=== PATIENT | male | born 1990 | race African-American/Black ===

== ENCOUNTER 2018-07-25 19:42 | Inpatient (IN) ==
[2018-07-25] MEDS ORDERED: Diphtheria/Tetanus/Pertussis Vaccine Inj 0.5 ML Syringe IM ONE (19:47)
[2018-07-25] MEDS ORDERED: Morphine Inj 4 MG/ML Vial ONE (19:54)
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
[2018-07-25] MEDS ORDERED: Lidocaine 2%/Epinephrine 1:100,000 30 ML MDV INFILTRATN ONE (20:32)
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
[2018-07-25 20:42] LABS: Baso % (Auto) 0.3 % (0.0-2.0); Eos % (Auto) 0.5 % (0.0-4.0); Hematocrit 45.5 % (39.0-51.0); Hemoglobin 15.2 gm/dL (13.0-17.0); Lymph # (Auto) 2.8 th/mm3 (1.0-4.8); Lymph % (Auto) 50.5 % (9.0-44.0); Mean Corpuscular HGB Conc 33.5 % (32.0-36.0); Mean Corpuscular Hemoglobin 28.2 pg (27.0-34.0); Mean Platelet Volume 7.5 fL (7.0-11.0); Mono # (Auto) 0.6 th/mm3 (0.0-0.9); Mono % (Auto) 11.5 % (0.0-8.0); Neut # (Auto) 2.1 th/mm3 (1.8-7.7); Neut % (Auto) 37.2 % (16.0-70.0); Platelet Count 207 th/mm3 (150-450); Red Blood Count 5.41 mil/mm3 (4.50-5.90); White Blood Count 5.6 th/mm3 (4.0-11.0)
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
[2018-07-25] MEDS ORDERED: Sod Chloride 0.9% Inj 1,000 ML IV.SIG ONE (20:45)
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
[2018-07-25] MEDS ORDERED: Lidocaine 1%/Epinephrine 1:100,000 Inj 50 ML Vial ONE (20:54)
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
[2018-07-25] MEDS ORDERED: ceFAZolin 2 GM Premix Inj 2 GM/100 ML BAG IV.SIG ONE (21:00)
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
[2018-07-25 21:04] LABS: Activated Partial Thrombo Time 25.2 sec (24.3-30.1); INR 1.1 Ratio
[2018-07-25 21:06] LABS: Prothrombin Time 11.3 sec (9.8-11.6)
[2018-07-25] MEDS ORDERED: fentaNYL Citrate Inj 100 MCG/2 ML Ampul ONE (21:24)
[2018-07-25] MEDS ORDERED: Morphine Inj 4 MG/ML Vial IV.PUSH ONE (21:40)
[2018-07-25] MEDS ORDERED: Morphine Inj 4 MG/ML Vial IV.PUSH PRN (21:59)
[2018-07-25] MEDS ORDERED: Ketorolac Inj 30 MG/ML (IVP) Vial IV.PUSH PRN (21:59)
[2018-07-25] MEDS ORDERED: Pantoprazole Inj 40 MG Vial IV.PUSH SCH (22:00)
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
[2018-07-25] MEDS: Sod Chloride 0.9% Inj 1,000 ML IV.CONT SCH (23:29)
[2018-07-26 07:46] LABS: Baso % (Auto) 0.2 % (0.0-2.0); Eos % (Auto) 0.1 % (0.0-4.0); Hematocrit 43.4 % (39.0-51.0); Hemoglobin 14.1 gm/dL (13.0-17.0); Lymph # (Auto) 1.3 th/mm3 (1.0-4.8); Lymph % (Auto) 20.5 % (9.0-44.0); Mean Corpuscular HGB Conc 32.5 % (32.0-36.0); Mean Corpuscular Hemoglobin 27.6 pg (27.0-34.0); Mean Platelet Volume 7.4 fL (7.0-11.0); Mono # (Auto) 0.7 th/mm3 (0.0-0.9); Mono % (Auto) 10.5 % (0.0-8.0); Neut # (Auto) 4.4 th/mm3 (1.8-7.7); Neut % (Auto) 68.7 % (16.0-70.0); Platelet Count 194 th/mm3 (150-450); Red Cell Distribution Width 13.1 % (11.6-17.2); White Blood Count 6.3 th/mm3 (4.0-11.0)
[2018-07-26 07:59] LABS: Albumin 3.7 g/dL (3.4-5.0); Anion Gap 9 meq/L (5-15); Aspartate Aminotransferase 60 U/L (15-37); Blood Urea Nitrogen 14 mg/dL (7-18); Calcium 8.1 mg/dL (8.5-10.1); Carbon Dioxide 24.6 meq/L (21.0-32.0); Chloride 103 meq/L (98-107); Glomerular Filtration Rate 59 mL/min (>89); Glucose,Random 97 mg/dL (74-106); Potassium 3.9 meq/L (3.5-5.1); Sodium 137 meq/L (136-145)
[2018-07-26 08:00] LABS: Alanine Aminotransferase 45 U/L (12-78)
[2018-07-26 08:03] LABS: Alkaline Phosphatase 38 U/L (45-117); Total Protein 7.3 g/dL (6.4-8.2)
[2018-07-26] MEDS: Sod Chloride 0.9% Inj 1,000 ML IV.CONT SCH (08:58)
[2018-07-26] MEDS ORDERED: Senna/Docusate Sodium 8.6/50 MG Tablet PO SCH (09:00)
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
[2018-07-26] MEDS ORDERED: Diphtheria/Tetanus/Pertussis Vaccine Inj 0.5 ML Syringe IM ONE (14:28)
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
== END 2018-07-26 14:46 | disposition home or self-care (01) ==
LOC: NEPI 19:42 → NEDA 19:42 → EDBD 21:59 → MERGE 21:59 → N06 22:52
PROVIDERS: ADMIT Surgery; ATTEND Surgery